=== PATIENT | male | born 1980 | race Two or more races ===

== ENCOUNTER 2024-11-08 16:28 | Inpatient (IN) | payer BC ==
[~2024-11-08] VITALS: Ht 182.9 cm; Wt 126.5 kg
[2024-11-08 01:00] VITALS: BP 125/78; PULSE 107; RESP 20; TEMP 98.3; O2SAT 92
[~2024-11-08 16:28] MED LIST: AZIT1POW PO
--- NOTE | 2024-11-08 17:15 | ED.PDOC ---
Foreign Body HPI Comments HPI: Poor Historian. History obtained from patient and the at bedside. 43-year-old male presents to emergency department for evaluation of foreign body in the rectum. Patient stated that around noon today, he intentionally inserted a many air for additional bottle into his rectum bottom side up for the purpose of sexual arousal. He has done this many times in the past and has been able to retrieve it in the past but today he tried to retrieve it with the handle of a comb but was unable to. Past Medical History: Alcohol abuse Past Surgical History: REVIEW OF SYSTEMS: CONSTITUTIONAL: Denies acute: fever, diaphoresis, chills, generalized weakness. HEAD: Denies acute: headache, photophobia Eyes: Denies acute: Double vision, vision loss, eye pain, eye discharge. EARS: Denies acute: tinnitus, hearing loss, ear discharge, ear pain, THROAT: Denies acute: sore throat, swelling, difficulty swallowing , pain with swallowing, change in voice. NECK: Denies acute: neck pain, neck swelling, stiff neck. HEART: Denies acute : chest pain, palpitations, LUNGS: Denies acute: SOB, wheezing, cough, hemoptysis ABDOMEN: Denies acute: abdominal pain, Nausea, Vomiting, diarrhea, melena , hematemesis, hematochezia SKIN: Denies acute: rash, redness, lesions, itchiness. EXTREMITIES: Denies acute: calf pain, numbness, tingling, weakness, denies pain in extremity. Denies acute: Low back pain. Neuro: Denies acute: focal neurological deficit, motor or sensory focal neurological deficit, tremors, seizure like activity, confusion, dizziness, change in mental status, loss of bowel or bladder function, cauda equina like symptoms. : Denies acute: dysuria, hematuria, flank pain, increase in urinary frequency. PSYCH: Denies acute: hallucination, suicidal ideation, homicidal ideation. PHYSICAL EXAM: General: no acute distress, awake and alert. Head: normocephalic, atraumatic. Neck: supple, trachea is midline, no swelling. Throat: Normal phonation. Eyes:, no erythema, no purulent discharge, no proptosis, no icterus. Heart: regular rate, regular rhythm, no significant murmur appreciated. Lungs: no apparent respiratory distress, Able to speak in full sentences. No wheezing, no rhonchi, no crackles. No stridors Clear to auscultation bilaterally. Abdomen: non tender to palpation, non distended, soft, no guarding, no rebound, + bowel sounds. Neuro: Awake, Alert, oriented to name, self, situation, follows commands GCS=15. Speech is normal. Skin: no petechia, no purpura, no cyanosis, non-pale, not jaundice. Lower extremities: --no - Pitting edema no deformity, no focal swelling, no calf TTP. Makes eye contact. moves all four extremities. Face: no apparent facial droop. Ambulating in the ED independently. ED COURSE: Chief Complaint: Foreign Body Time Seen by MD: 17:15 Primary Care Provider: none History of Present Illness: Nurses Notes, Medications, Allergies Allergies: Coded Allergies: NO KNOWN ALLERGIES (Unverified , 02/03/24) Home Meds Active Scripts Azithromycin (Zithromax) 1 Gm Pow, 1 PACK PO ONCE, #1 PACK Prov:LAURO HEDRICK MD 02/03/24 Information Source: Patient, Spouse Mode of Arrival: Ambulatory Timing: Hours Duration: Since onset, Hours Severity: Moderate Prehospital treatment: None Location: Rectum Context: Purposeful Foreign Body: Other (Air freshener Bottle) Associated signs and symptoms: None Past Medical History PAST MEDICAL HISTORY: High Lipids, Schizophrenia Past Medical History (Other): Bipolar, ADHD Surgical History (Other): Right foot pain Family History Family History: Reviewed,noncontributory to illness, Unknown Social History Smoker: Non-Smoker Alcohol: Occasionally Drugs: Denies Drug Use Lives In: Home Was a procedure done? Was a procedure done?: No FB Differential Dx Differential Diagnosis: Foreign Body, Perforation X-Ray, Labs, Meds, VS Vital Signs Date Time Temp Pulse Resp B/P (MAP) Pulse Ox O2 Delivery O2 Flow Rate FiO2 11/08/24 19:52 115 18 97 Room Air* 0 21 11/08/24 19:51 99.1 115 18 164/114 (131) 98 99.1 11/08/24 16:35 99.8 126 17 139/94 (109) 95 99.8 Lab Test 11/08/24 19:32 11/08/24 17:42 Range/Units Lactic Acid Level Pending 2.7 *H 0.4-2.0 mmol/L White Blood Count 18.3 H 4.4-10.8 10^3/uL Red Blood Count 5.29 4.5-5.90 10^6/uL Hemoglobin 16.4 13.5-17.5 g/dL Hematocrit 49.5 41.0-53.0 % Mean Corpuscular Volume 93.7 80.0-100.0 fL Mean Corpuscular Hemoglobin 31.0 28.0-32.0 pg Mean Corpuscular Hemoglobin Concent 33.1 32.0-36.0 g/dL Red Cell Distribution Width 13.2 11.8-14.3 % Platelet Count 279 140-450 10^3/uL Mean Platelet Volume 8.5 6.9-10.8 fL Neutrophils (%) (Auto) 87.5 H 37.0-80.0 % Lymphocytes (%) (Auto) 6.6 L 10.0-50.0 % Monocytes (%) (Auto) 5.7 0.0-12.0 % Eosinophils (%) (Auto) 0.0 0.0-7.0 % Basophils (%) (Auto) 0.2 0.0-2.0 % Neutrophils # (Auto) 16.0 H 1.6-8.6 10 ^3/uL Lymphocytes # (Auto) 1.2 0.4-5.4 10 ^3/uL Monocytes # (Auto) 1.0 0-1.3 10 ^3/uL Eosinophils # (Auto) 0 0-0.8 10 ^3/uL Basophils # (Auto) 0 0-0.2 10 ^3/uL Nucleated Red Blood Cells 0.1 % Prothrombin Time 10.3 9.3-11.8 sec Prothrombin Time INR 0.97 0.9-1.15 Activated Partial Thromboplast Time 25.8 24.5-34.5 SEC Sodium Level 140 136-145 mmol/L Potassium Level 4.0 3.5-5.1 mmol/L Chloride Level 107 98-107 mmol/L Carbon Dioxide Level 22 20-31 mmol/L Anion Gap 11 5-15 Blood Urea Nitrogen 10 9-23 mg/dL Creatinine 1.30 0.700-1.30 mg/dL Glomerular Filtration Rate Calc 70 >90 mL/min BUN/Creatinine Ratio 7.7 L 10.0-20.0 Serum Glucose 88 74-106 mg/dL Calcium Level 10.4 8.7-10.4 mg/dL Total Bilirubin 0.3 0.2-1.0 mg/dL Aspartate Amino Transferase (AST) 38 13-40 U/L Alanine Aminotransferase (ALT) 37 7-40 U/L Alkaline Phosphatase 106 46-116 U/L Total Protein 8.2 5.7-8.2 g/dL Albumin 5.3 H 3.2-4.8 g/dL Current Medications Medications (Trade) Dose Ordered Sig/Kathryn Route Start Time Stop Time Status Last Admin Piperacillin Sod/ Tazobactam Sod 100 ml @ 100 mls/hr ONCE ONCE IV 11/08/24 19:00 11/08/24 19:59 DC 11/08/24 19:00 Sodium Chloride 1,000 ml @ 1,000 mls/hr Q1H ONCE IV 11/08/24 19:00 11/08/24 19:59 DC 11/08/24 19:00 Sodium Chloride 2,350 ml @ 2,350 mls/hr ONCE ONCE IV 11/08/24 19:45 11/08/24 20:44 11/08/24 19:49 Time of 1ST Reevaluation: 17:45 Reevaluation 1ST: Unchanged Time of 2ND Reevaluation: 18:29 (The case was discussed with the General surgery on-call team (HPI, physical exam, labs and diagnostic tests that were available at the time of disposition, ED course, treatment plan) on the phone. They agreed to follow up with the patient in consult. Requested NPO status. Patient has already been instructed as I evaluated him to stay NPO. Dr. Pa) Patient Education/Counseling: Diagnosis, Treatment Family Education/Counseling: Diagnosis, Treatment Comments Patient presented with the above HPI.---intentional foreign body in rectum insertion---workup was initiated. patient was found with the above mentioned diagnosis. the following medications were ordered: please refer to order lists of meds and tests obtained by myself Dr. Dickinson. Patient ED course and VS have been stabilized. Patient has been reassessed in the ED and remained in a stable condition. Pertinent incidental findings were discussed with the patient and/or family. Patient/family voices understanding and is agreeable with plan. Patient has been observed in the ED adequate length of time to insure improvement/stability. Escalation of care considered: Consideration of escalation to observation or admission General surgery was consulted. Patient was ADMITTED to the medicine team for further evaluation and treatment of their presentation. Sepsis workup was initiated. General surgery came and evaluated the patient at bedside. All the reports of any imaging studies that were ordered by myself were reviewed by myself. Departure 1 Departure Time of Disposition: 18:30 Impression: Primary Impression: Retained foreign body Additional Impression: Leukocytosis Disposition: ADMITTED INPATIENT Admit to: Tele Condition: Guarded Discharged With: Self Critical Care Note Critical Care Time?: Yes (45 min-critical care time only) Heart Score Heart Score: Heart Score Response (Comments) Value History N/A 0 EKG N/A 0 Age N/A 0 Risk Factors N/A 0 Troponin N/A 0 Total 0 I personally scribed for NATALIE DICKINSON DO ([email or web address]) on 11/08/24 at 17:15. Electronically submitted by John Carmen ([email or web address]). NATALIE DICKINSON DO Nov 08, 2024 17:15
[2024-11-08 18:08] LABS: Basophils # (auto) 0 10 ^3/uL (0-0.2); Basophils % (auto) 0.2 % (0.0-2.0); Eosinophils # (auto) 0 10 ^3/uL (0-0.8); Hematocrit 49.5 % (41.0-53.0); Hemoglobin 16.4 g/dL (13.5-17.5); Lymphocytes # (auto) 1.2 10 ^3/uL (0.4-5.4); Lymphocytes % (auto) 6.6 % (10.0-50.0); Mean Corpuscular Hgb Conc. 33.1 g/dL (32.0-36.0); Mean Corpuscular Volume 93.7 fL (80.0-100.0); Monocytes % (auto) 5.7 % (0.0-12.0); Neutrophils % (auto) 87.5 % (37.0-80.0); Nucleated Red Blood Cells % 0.1 %; Platelet Count (auto) 279 10^3/uL (140-450); Red Blood Cells 5.29 10^6/uL (4.5-5.90); Red Cell Distribution Width 13.2 % (11.8-14.3); White Blood Cell 18.3 10^3/uL (4.4-10.8)
[2024-11-08 18:24] LABS: Alanine Aminotransferase 37 U/L (7-40); Alkaline Phosphatase 106 U/L (46-116); Anion Gap 11 (5-15); Aspartate Aminotransferase 38 U/L (13-40); BUN/Creatinine Ratio 7.7 (10.0-20.0); Bilirubin, Total 0.3 mg/dL (0.2-1.0); Blood Urea Nitrogen 10 mg/dL (9-23); Calcium 10.4 mg/dL (8.7-10.4); Carbon Dioxide 22 mmol/L (20-31); Chloride 107 mmol/L (98-107); Glucose 88 mg/dL (74-106); Sodium 140 mmol/L (136-145); Total Protein 8.2 g/dL (5.7-8.2)
[2024-11-08 18:35] LABS: Albumin 5.3 g/dL (3.2-4.8)
--- NOTE | 2024-11-08 18:41 | DVH ---
Procedure: CT CT AB PEL WO CON-NO ORAL OR IV 11/08/2024 05:24 PM Indication: FB in rectum Comparison Study: None Technique: Axial images were obtained and reformatted in coronal and sagittal planes. All CT scans at this medical facility are performed using dose modulation techniques as appropriate to a performed e xam including the following: Automated exposure control was utilized; adjustment of the MA and/or KV according to patient size; and use of iterative reconstruction technique. CT Dose: CTDI volume is 21. 68 mGy. Dose-length product is 1339.63 mGy*cm FINDINGS: Lower Chest: Unremarkable. Hepatobiliary: Unremarkable. Spleen: Unremarkable. Pancreas: Unremarkable. Adrenal Glands: Unremarkable. tract: The kidneys are normal in size bilaterally without hydronephrosis or nephrolithiasis. The u rinary bladder is unremarkable. GI tract: The stomach is grossly normal in appearance. No evidence of small bowel obstruction. The la rge bowel is unremarkable. A bottle shaped foreign body seen in the upper rectum measuring 13.5 cm in length and 3.2 cm in diameter. The appendix is normal. Lymphatics: No mesenteric, retroperitoneal or periportal lymphadenopathy. Vasculature: The abdominal aorta is normal in in caliber. Pelvic Organs: Unremarkable Bones/soft tissues: No acute abnormality. Other: None. IMPRESSION: 1. Bottle-shaped foreign body in the upper rectum measuring 13.5 x 3.2 cm, approximately 10 cm proxim al to the anal verge. No evidence of perforation or proctitis.
[2024-11-08 18:51] LABS: Lactic Acid w/Reflex 2.7 mmol/L (0.4-2.0)
[2024-11-08] MEDS: PIPERACILLIN-TAZOB 3.375GM 100 ML IV ONE (19:00)
[2024-11-08] MEDS: SODIUM CHLORIDE 0.9% 1,000 ML IV ONE (19:00)
[2024-11-08] MEDS ORDERED: LIDOCAINE W/ EPINEPHRINE 1% 20ML VIAL ONE (19:10)
[2024-11-08] MEDS ORDERED: LIDOCAINE W/ EPINEPHRINE 2% INJ 20ML VIAL ONE (19:10)
[2024-11-08] MEDS ORDERED: LIDOCAINE 1% HCL (LOCAL ANESTH.) INJ 20ML MDV ONE (19:10)
[2024-11-08] MEDS ORDERED: MIDAZOLAM HCL 2MG/2ML 2ml VIAL (1mg/ml) ONE (19:17)
[2024-11-08] MEDS ORDERED: fentaNYL CITRATE 100 MCG/2 ML VL ONE (19:17)
[2024-11-08] MEDS ORDERED: ROCURONIUM 10MG/ML 10ML VIAL IV ONE (19:19)
[2024-11-08] MEDS ORDERED: ONDANSETRON HCL 4 MG/2 ML VIAL ONE (19:19)
[2024-11-08] MEDS ORDERED: KETOROLAC TROMETH 30 MG/ML 1ML VIAL ONE (19:19)
[2024-11-08] MEDS ORDERED: GLYCOPYRROLATE 0.2 MG/ML 1ML VIAL ONE (19:19)
[2024-11-08] MEDS ORDERED: DexAMETHasone SOD PHOS 10MG/1ML VIAL INJ ONE (19:19)
[2024-11-08] MEDS ORDERED: LIDOCAINE 2% (LOCAL ANESTH.) PF 5ml SDV ONE (19:19)
[2024-11-08] MEDS ORDERED: PROPOFOL 10 MG/ML 20 ML IV ONE (19:19)
--- NOTE | 2024-11-08 19:19 | DVHINCON2 ---
Date of service: Nov 08, 2024 History of Present Illness 43-year-old male with a history of schizophrenia who inserted a plastic spray bottle into his anus around 11:00 a.m. this morning. He has placed foreign b odies in his rectum before but was able to retrieve them however this time he was unable to remove it therefore used hair brush to try to dig it out but ended up putting it further proximal into his rectum. Now complaining of lower abdominal pain. Past Medical History Schizophrenia Past Surgical History Leg surgery Family History Noncontributory Social History Positive for alcohol. Denies any tobacco or IV drug use Allergies: Coded Allergies: NO KNOWN ALLERGIES (Unverified , 02/03/24) Home Meds Active Scripts Azithromycin (Zithromax) 1 Gm Pow, 1 PACK PO ONCE, #1 PACK Prov:LAURO HEDRICK MD 02/03/24 Vital Signs Vital Signs Date Time Temp Pulse Resp B/P (MAP) Pulse Ox O2 Delivery O2 Flow Rate FiO2 11/08/24 16:35 99.8 126 17 139/94 (109) 95 99.8 Physical Exam GEN: Obese male in no acute distress. Alert. HEENT: Normocephalic atraumatic. Moist mucous membranes. Anicteric sclerae. CV: RRR Respiratory: CTAB ABD: Obese abdomen with minimal suprapubic tenderness to palpation. Rectal: Barely able to touch the tip of the foreign body on my digital rectal exam. CT of the abdomen and pelvis: Bottle shaped foreign body in the upper rectum measuring 13.5 x 3.2 cm approximately 10 cm proximal to the anal verge without evidence of perforation or proctitis. Labs/Diagnostic Data Labs Test 11/08/24 17:42 Range/Units White Blood Count 18.3 H 4.4-10.8 10^3/uL Red Blood Count 5.29 4.5-5.90 10^6/uL Hemoglobin 16.4 13.5-17.5 g/dL Hematocrit 49.5 41.0-53.0 % Mean Corpuscular Volume 93.7 80.0-100.0 fL Mean Corpuscular Hemoglobin 31.0 28.0-32.0 pg Mean Corpuscular Hemoglobin Concent 33.1 32.0-36.0 g/dL Red Cell Distribution Width 13.2 11.8-14.3 % Platelet Count 279 140-450 10^3/uL Mean Platelet Volume 8.5 6.9-10.8 fL Neutrophils (%) (Auto) 87.5 H 37.0-80.0 % Lymphocytes (%) (Auto) 6.6 L 10.0-50.0 % Monocytes (%) (Auto) 5.7 0.0-12.0 % Eosinophils (%) (Auto) 0.0 0.0-7.0 % Basophils (%) (Auto) 0.2 0.0-2.0 % Neutrophils # (Auto) 16.0 H 1.6-8.6 10 ^3/uL Lymphocytes # (Auto) 1.2 0.4-5.4 10 ^3/uL Monocytes # (Auto) 1.0 0-1.3 10 ^3/uL Eosinophils # (Auto) 0 0-0.8 10 ^3/uL Basophils # (Auto) 0 0-0.2 10 ^3/uL Nucleated Red Blood Cells 0.1 % Sodium Level 140 136-145 mmol/L Potassium Level 4.0 3.5-5.1 mmol/L Chloride Level 107 98-107 mmol/L Carbon Dioxide Level 22 20-31 mmol/L Anion Gap 11 5-15 Blood Urea Nitrogen 10 9-23 mg/dL Creatinine 1.30 0.700-1.30 mg/dL Glomerular Filtration Rate Calc 70 >90 mL/min BUN/Creatinine Ratio 7.7 L 10.0-20.0 Serum Glucose 88 74-106 mg/dL Lactic Acid Level 2.7 *H 0.4-2.0 mmol/L Calcium Level 10.4 8.7-10.4 mg/dL Total Bilirubin 0.3 0.2-1.0 mg/dL Aspartate Amino Transferase (AST) 38 13-40 U/L Alanine Aminotransferase (ALT) 37 7-40 U/L Alkaline Phosphatase 106 46-116 U/L Total Protein 8.2 5.7-8.2 g/dL Albumin 5.3 H 3.2-4.8 g/dL Assessment 1. Rectal foreign body Plan/Recommendation 1. Exam under anesthesia with retrieval of rectal foreign body possible expiratory laparotomy with colostomy Informed consent: The surgery and its risks including but not limited to infection, bleeding requiring possible blood transfusion with the risk of hepatitis or HIV infection, possible open surgery with a colostomy, possible perioperative HI or stroke were explained to the patient and his . All questions were answered to their satisfaction. They both expressed verbal understanding and wished to proceed with the surgery. Plan discussed with: Patient, Spouse LIZZ RESTREPO MD Nov 08, 2024 19:19
[2024-11-08 19:35] LABS: INR 0.97 (0.9-1.15); Partial Thromboplastin Time 25.8 SEC (24.5-34.5); Prothrombin Time 10.3 sec (9.3-11.8)
[2024-11-08] MEDS: SODIUM CHLORIDE 0.9% 2,350 ML IV ONE (19:49)
[2024-11-08 19:52] VITALS: PULSE 115; RESP 18; O2SAT 97
[2024-11-08] MEDS ORDERED: SUGAMMADEX 200mg/2ml Vial (100MG/ML) IV ONE (20:09)
[2024-11-08 21:11] VITALS: O2SAT 100
--- NOTE | 2024-11-08 21:21 | DVHOP2 ---
Operative Report - 2 Report Details Date: 11/08/24 Preop Diagnosis: 1. rectal foreign body Postop Diagnosis: 1. same Surgeon: Lizz Pa MD Plastic Surgery Coordinator: none Anesthesiologist: Dr. Mcneill Anesthesia: General Consent: The surgery and its risks including but not limited to infection, bleeding requiring possible blood transfusion with the risk of hepatitis or HIV infection, possible open surgery with colostomy, possible perioperative SD or stroke were explained to the patient and his . All questions were answered to their satisfaction. They expressed verbal understanding and wished to proceed with the surgery. Complications: None Estimated Blood Loss: 5 mL Fluids: 1 L Name of Procedure Performed Removal of foreign body with a rigid proctoscopy Procedure Details Procedure Details: After induction of general anesthesia, patient was placed in a high lithotomy position and his abdomen and anal regions were prepped and draped in standard surgical fashion. A digital rectal exam was 1st performed and I was barely able to touch the tip of this foreign body. By applying gentle pressure in the suprapubic region forcing it towards the caudal direction the foreign body was able to be moved into a better position and with some effort it was removed manually. Rigid proctoscopy was then performed up to 20 cm with no obvious other foreign bodies however there was some mucosal edema involving the rectal wall without obvious perforation. The patient tolerated procedure well and was awakened, extubated and transferred to recovery in stable condition. Specimen: Plastic spray bottle retrieved Condition Stable Disposition Still a Patient LIZZ PA MD Nov 08, 2024 21:21
[2024-11-08] MEDS ORDERED: HYDROmorphone HCL 2 MG/ML VL/or syr IV PRN (21:30)
[2024-11-08 23:03] VITALS: BP 118/79; PULSE 102; RESP 20; TEMP 98.3; O2SAT 95
[2024-11-08] MEDS: SODIUM CHLORIDE 0.9% 500 ML IV ONE (23:10)
[2024-11-09] MEDS ORDERED: CLON0.5T3 PO (00:20)
[2024-11-09] MEDS ORDERED: ARIP2TAB PO (00:20)
[2024-11-09] MEDS ORDERED: DOXE25CA2 PO (00:20)
[2024-11-09] MEDS ORDERED: TOPI100T68 PO (00:20)
[2024-11-09] MEDS ORDERED: OXCA600T3 PO (00:20)
[2024-11-09] MEDS ORDERED: PERP2TAB6 PO (00:20)
[2024-11-09] MEDS: PIPERACILLIN-TAZOB 3.375GM 100 ML IV SCH (01:11)
[2024-11-09 05:00] VITALS: BP 122/70; PULSE 91; RESP 19; TEMP 97.5; O2SAT 98
--- NOTE | 2024-11-09 05:21 | DVHHP2 ---
History of Present Illness Reason for Visit: Foreign body History of Present Illness 43-year-old male seen in recovery unit post foreign body removal. Patient presented after he intentionally inserted a bottle into his rectum for the purpose of sexual arousal. He reports he has done previously and was able to retrieve it but today he was unable to. Patient is alert oriented denies any distress. Past Medical History Schizophrenia Family History Noncontributory Smoke: No ALCOHOL: occassional Drugs: None Lives: with Family Review of Systems Review of Systems Review of systems are currently negative otherwise addressed in HPI. Allergies: Coded Allergies: Trazodone (Verified Allergy, Unknown, HIVES, 11/09/24) Medications Current Medications Medications Dose Ordered Sig/Kathryn Route Start Time Stop Time Status Last Admin Dose Admin Piperacillin Sod/ Tazobactam Sod 100 ml @ 25 mls/hr Q8H IV 11/09/24 02:00 11/09/24 01:11 25 MLS/HR Topiramate 100 mg Q12HR PO 11/09/24 10:00 Oxcarbazepine 300 mg Q12HR PO 11/09/24 10:00 Exam Vital Signs Vital Signs Date Time Temp Pulse Resp B/P (MAP) Pulse Ox O2 Delivery O2 Flow Rate FiO2 11/08/24 23:03 98.3 102 20 118/79 (92) 95 98.3 11/08/24 23:03 Room Air* 0 21 Exam Gen: 43-year-old male in no apparent distress, morbidly obese Skin: Warm, dry, normal color and texture, no rash. HEENT: Normocephalic atraumatic, mucous membranes moist and pink. Neck: Cervical and supraclavicular nodes normal without enlargement, trachea is midline, thyroid gland is normal without masses. Pulmonary: Clear to auscultation and percussion bilaterally. Cardiac: Regular rate and rhythm. No murmur Abdomen: Soft, nontender, nondistended, bowel sounds present all 4 quadrants, no guarding, no rigidity, no organomegaly. Extremities: No cyanosis, clubbing, no edema Neuro: Cranial nerves II through XII grossly intact, normal affect and speech, no focal motor deficits. Labs/Xrays ORDERING PHYSICIAN: NATALIE DICKINSON DO PROCEDURE(s): ABPL - CT AB PEL WO CON-NO ORAL OR IV REASON: FB in rectum ORDER NUMBER(s): [id number], ACCESSION NUMBER(s): [id number] Procedure: CT CT AB PEL WO CON-NO ORAL OR IV 11/08/2024 05:24 PM Indication: FB in rectum Comparison Study: None Technique: Axial images were obtained and reformatted in coronal and sagittal planes. All CT scans at this medical facility are performed using dose modulation techniques as appropriate to a performed exam including the following: Automated exposure control was utilized; adjustment of the MA and/or KV according to patient size; and use of iterative reconstruction technique. CT Dose: CTDI volume is 21.68 mGy. Dose-length product is 1339.63 mGy*cm FINDINGS: Lower Chest: Unremarkable. Hepatobiliary: Unremarkable. Spleen: Unremarkable. Pancreas: Unremarkable. Adrenal Glands: Unremarkable. tract: The kidneys are normal in size bilaterally without hydronephrosis or nephrolithiasis. The urinary bladder is unremarkable. GI tract: The stomach is grossly normal in appearance. No evidence of small bowel obstruction. The large bowel is unremarkable. A bottle shaped foreign body seen in the upper rectum measuring 13.5 cm in length and 3.2 cm in diameter. The appendix is normal. Lymphatics: No mesenteric, retroperitoneal or periportal lymphadenopathy. Vasculature: The abdominal aorta is normal in in caliber. Pelvic Organs: Unremarkable Bones/soft tissues: No acute abnormality. Other: None. IMPRESSION: 1. Bottle-shaped foreign body in the upper rectum measuring 13.5 x 3.2 cm, approximately 10 cm proximal to the anal verge. No evidence of perforation or proctitis. ATED BY: MYRNA MUHAMMAD MD Labs Test 11/08/24 19:32 11/08/24 17:42 Range/Units Lactic Acid Level 2.4 *H 0.4-2.0 mmol/L White Blood Count 18.3 H 4.4-10.8 10^3/uL Red Blood Count 5.29 4.5-5.90 10^6/uL Hemoglobin 16.4 13.5-17.5 g/dL Hematocrit 49.5 41.0-53.0 % Mean Corpuscular Volume 93.7 80.0-100.0 fL Mean Corpuscular Hemoglobin 31.0 28.0-32.0 pg Mean Corpuscular Hemoglobin Concent 33.1 32.0-36.0 g/dL Red Cell Distribution Width 13.2 11.8-14.3 % Platelet Count 279 140-450 10^3/uL Mean Platelet Volume 8.5 6.9-10.8 fL Neutrophils (%) (Auto) 87.5 H 37.0-80.0 % Lymphocytes (%) (Auto) 6.6 L 10.0-50.0 % Monocytes (%) (Auto) 5.7 0.0-12.0 % Eosinophils (%) (Auto) 0.0 0.0-7.0 % Basophils (%) (Auto) 0.2 0.0-2.0 % Neutrophils # (Auto) 16.0 H 1.6-8.6 10 ^3/uL Lymphocytes # (Auto) 1.2 0.4-5.4 10 ^3/uL Monocytes # (Auto) 1.0 0-1.3 10 ^3/uL Eosinophils # (Auto) 0 0-0.8 10 ^3/uL Basophils # (Auto) 0 0-0.2 10 ^3/uL Nucleated Red Blood Cells 0.1 % Prothrombin Time 10.3 9.3-11.8 sec Prothrombin Time INR 0.97 0.9-1.15 Activated Partial Thromboplast Time 25.8 24.5-34.5 SEC Sodium Level 140 136-145 mmol/L Potassium Level 4.0 3.5-5.1 mmol/L Chloride Level 107 98-107 mmol/L Carbon Dioxide Level 22 20-31 mmol/L Anion Gap 11 5-15 Blood Urea Nitrogen 10 9-23 mg/dL Creatinine 1.30 0.700-1.30 mg/dL Glomerular Filtration Rate Calc 70 >90 mL/min BUN/Creatinine Ratio 7.7 L 10.0-20.0 Serum Glucose 88 74-106 mg/dL Calcium Level 10.4 8.7-10.4 mg/dL Total Bilirubin 0.3 0.2-1.0 mg/dL Aspartate Amino Transferase (AST) 38 13-40 U/L Alanine Aminotransferase (ALT) 37 7-40 U/L Alkaline Phosphatase 106 46-116 U/L Total Protein 8.2 5.7-8.2 g/dL Albumin 5.3 H 3.2-4.8 g/dL Assessment/Plan Assessment/Plan Assessment Rectal foreign body Schizophrenia Plan Admit the patient to Med surge to the hospitalist Resume home medications Continue treatment per orders. Plan discussed with: Patient My Orders Orders - RIDDHI RAMIREZ Procedure Category Date Status Time Admit ADMIT 11/08/24 Transmitted 21:54 Topiramate (Topamax) PHA 11/09/24 In Process 10:00 Oxcarbazepine Tablet PHA 11/09/24 In Process (Trileptal Tablet) 10:00 Regular Diet DIET 11/09/24 Transmitted Breakfast Administer EDWARDO 11/09/24 In Process Vaccination - Flu V 00:24 Date of Service: Nov 08, 2024 Billing Provider: RIDDHI RAMIREZ Common Visit Codes: [id number] INP/OBS CARE (MOD) RDIDHI RAMIREZ Nov 09, 2024 05:21
--- NOTE | 2024-11-09 07:32 | DVHPN2 ---
Progress Note - Dictate Date Seen: Nov 09, 2024 Medical Necessity Reason Pt with a Central, PICC or Fol: No Subjective E: no major events o/n. feels better. vital signs Vital Sign Date Time Temp Pulse Resp B/P (MAP) Pulse Ox O2 Delivery O2 Flow Rate FiO2 11/09/24 05:00 97.5 91 19 122/70 (87) 98 97.5 11/08/24 23:03 Room Air* 0 21 Total Intake and Output 11/08/24 11/08/24 11/09/24 15:00 23:00 07:00 Intake Total 560 ml Balance 560 ml medications Current Medications Medications Dose Ordered Sig/Kathryn Route Start Time Stop Time Status Last Admin Dose Admin Piperacillin Sod/ Tazobactam Sod 100 ml @ 25 mls/hr Q8H IV 11/09/24 02:00 11/09/24 01:11 25 MLS/HR Topiramate 100 mg Q12HR PO 11/09/24 10:00 Oxcarbazepine 300 mg Q12HR PO 11/09/24 10:00 objective GEN: NAD ABD: soft. min suprapubic TTP. no G/R. laboratory and microbiology Laboratory Tests 11/08/24 17:42 Test 11/08/24 17:42 Range/Units Serum Glucose 88 74-106 mg/dL Assessment/Plan A: 1. removal of rectal foreign body P: 1. dc home if WBC is coming down. Plan discussed with: Patient LIZZ RESTREPO MD Nov 09, 2024 07:32
[2024-11-09 08:00] VITALS: RESP 20; O2SAT 96
[2024-11-09 08:00] LABS: Basophils # (auto) 0 10 ^3/uL (0-0.2); Basophils % (auto) 0.1 % (0.0-2.0); Eosinophils # (auto) 0 10 ^3/uL (0-0.8); Hematocrit 42.7 % (41.0-53.0); Hemoglobin 14.6 g/dL (13.5-17.5); Lymphocytes # (auto) 1.3 10 ^3/uL (0.4-5.4); Lymphocytes % (auto) 11.4 % (10.0-50.0); Mean Corpuscular Hemoglobin 32.4 pg (28.0-32.0); Mean Corpuscular Hgb Conc. 34.2 g/dL (32.0-36.0); Mean Corpuscular Volume 94.6 fL (80.0-100.0); Monocytes # (auto) 0.5 10 ^3/uL (0-1.3); Monocytes % (auto) 4.3 % (0.0-12.0); Neutrophils # (auto) 9.5 10 ^3/uL (1.6-8.6); Neutrophils % (auto) 84.2 % (37.0-80.0); Platelet Count (auto) 224 10^3/uL (140-450); Red Blood Cells 4.51 10^6/uL (4.5-5.90); Red Cell Distribution Width 13.8 % (11.8-14.3); White Blood Cell 11.3 10^3/uL (4.4-10.8)
[2024-11-09 08:01] LABS: Potassium 4.2 mmol/L (3.5-5.1); Sodium 142 mmol/L (136-145)
[2024-11-09 08:02] LABS: Anion Gap 8 (5-15); Carbon Dioxide 24 mmol/L (20-31)
[2024-11-09 08:03] LABS: Calcium 9.5 mg/dL (8.7-10.4)
[2024-11-09 08:07] LABS: BUN/Creatinine Ratio 8.4 (10.0-20.0); Blood Urea Nitrogen 11 mg/dL (9-23); Chloride 110 mmol/L (98-107); Glucose 135 mg/dL (74-106)
[2024-11-09 09:00] VITALS: BP 132/85; PULSE 97; RESP 20; TEMP 97.6; O2SAT 96
[2024-11-09 09:28] LABS: Lactic Acid w/Reflex 2.5 mmol/L (0.4-2.0)
[2024-11-09] MEDS: TOPIRAMATE 100 MG TAB PO SCH (10:23)
[2024-11-09] MEDS: OXcarbazepine 300 MG TAB PO SCH (10:23)
[2024-11-09] MEDS: SODIUM CHLORIDE 0.9% 1,000 ML IV ONE (10:46)
[2024-11-09 13:00] VITALS: BP_SYST 125; BP_SYST 133; BP_DIAS 58; BP_DIAS 59; PULSE 57; PULSE 88; RESP 18; TEMP 98.1; O2SAT 93; O2SAT 95
[2024-11-09] MEDS ORDERED: AUG875T PO (13:09)
--- NOTE | 2024-11-09 19:17 | DVHDSRES ---
Discharge Summary Date of Admission Resident Creating Document: TITO GIVENS RESIDENT Nov 08, 2024 at 21:54 Date of Discharge: Nov 09, 2024 Admitting Diagnosis Rectal foreign body Schizophrenia Wounds: none Labs/Diagnostic Data: Laboratory Results Test 11/09/24 08:37 11/09/24 07:32 11/08/24 17:42 Lactic Acid Level 2.5 mmol/L (0.4-2.0) White Blood Count 11.3 10^3/uL (4.4-10.8) Red Blood Count 4.51 10^6/uL (4.5-5.90) Hemoglobin 14.6 g/dL (13.5-17.5) Hematocrit 42.7 % (41.0-53.0) Mean Corpuscular Volume 94.6 fL (80.0-100.0) Mean Corpuscular Hemoglobin 32.4 pg (28.0-32.0) Mean Corpuscular Hemoglobin Concent 34.2 g/dL (32.0-36.0) Red Cell Distribution Width 13.8 % (11.8-14.3) Platelet Count 224 10^3/uL (140-450) Mean Platelet Volume 8.3 fL (6.9-10.8) Neutrophils (%) (Auto) 84.2 % (37.0-80.0) Lymphocytes (%) (Auto) 11.4 % (10.0-50.0) Monocytes (%) (Auto) 4.3 % (0.0-12.0) Eosinophils (%) (Auto) 0.0 % (0.0-7.0) Basophils (%) (Auto) 0.1 % (0.0-2.0) Neutrophils # (Auto) 9.5 10 ^3/uL (1.6-8.6) Lymphocytes # (Auto) 1.3 10 ^3/uL (0.4-5.4) Monocytes # (Auto) 0.5 10 ^3/uL (0-1.3) Eosinophils # (Auto) 0 10 ^3/uL (0-0.8) Basophils # (Auto) 0 10 ^3/uL (0-0.2) Nucleated Red Blood Cells 0.0 % Sodium Level 142 mmol/L (136-145) Potassium Level 4.2 mmol/L (3.5-5.1) Chloride Level 110 mmol/L (98-107) Carbon Dioxide Level 24 mmol/L (20-31) Anion Gap 8 (5-15) Blood Urea Nitrogen 11 mg/dL (9-23) Creatinine 1.31 mg/dL (0.700-1.30) Glomerular Filtration Rate Calc 70 mL/min (>90) BUN/Creatinine Ratio 8.4 (10.0-20.0) Serum Glucose 135 mg/dL (74-106) Calcium Level 9.5 mg/dL (8.7-10.4) Prothrombin Time 10.3 sec (9.3-11.8) Prothrombin Time INR 0.97 (0.9-1.15) Activated Partial Thromboplast Time 25.8 SEC (24.5-34.5) Total Bilirubin 0.3 mg/dL (0.2-1.0) Aspartate Amino Transferase (AST) 38 U/L (13-40) Alanine Aminotransferase (ALT) 37 U/L (7-40) Alkaline Phosphatase 106 U/L (46-116) Total Protein 8.2 g/dL (5.7-8.2) Albumin 5.3 g/dL (3.2-4.8) Other Laboratory Tests 11/09/24 07:32 Brief Hx & Hospital Course: HPI 43-year-old male with a history of schizophrenia who inserted a plastic spray bottle into his anus around 11:00 a.m. this morning. He has placed foreign bodies in his rectum before but was able to retrieve them however this time he was unable to remove it therefore used hair brush to try to dig it out but ended up putting it further proximal into his rectum. Now complaining of lower abdominal pain. Past medical history: Schizophrenia Past surgical history: Neck surgery Social history: Reports consuming alcohol but denies smoking or other illegal drug use Home medications: Aripiprazole 2 mg daily, clonazepam 0.5 mg HS, doxepin 25 mg q.p.m., CPN 600 mg t.i.d., perphenazine/amitriptyline 1 tab p.o. t.i.d., topiramate 100 mg b.i.d. Brief hospital course Patient came to the hospital with a chief complaint of rectal pain after foreign body impaction. CT abdomen pelvis without contrast showed bottle shaped foreign body in the upper rectum measuring 13.5 into frequent 2 cm approximately 10 cm proximal to the anal which, no evidence of perforation of proctitis was seen. Surgery were consulted and the patient was taken to the OR where under general anesthesia foreign body was removed and there was no evidence of perforation. Patient was started on full liquid diet. Patient passed stool and gas and reported improvement in in the rectal pain. Patient had elevated WBC count with the elevated lactic acid in the hospital following which he was started on IV Zosyn and given IV fluids. WBC counts decreasing and the patient was given bolus IV fluids. Patient was cleared from discharge from surgery following which he was sent home in stable condition advised to follow up with the PCP in 1 week. Discharge plan Augmentin 875 mg b.i.d. for 5 days Continue on full liquid diet for 3-4 days and then advanced diet as tolerated. Follow up with the PCP Consults/Reason for consult Surgery consultation for impacted foreign body in the rectum Operations or Procedures Operative Report - 2 Report Details Date: 11/08/24 Preop Diagnosis: 1. rectal foreign body Postop Diagnosis: 1. same Surgeon: Garcia Restrepo MD Health Services Manager: none Anesthesiologist: Dr. Mcneill Anesthesia: General Consent: The surgery and its risks including but not limited to infection, bleeding requiring possible blood transfusion with the risk of hepatitis or HIV infection, possible open surgery with colostomy, possible perioperative NM or stroke were explained to the patient and his . All questions were answered to their satisfaction. They expressed verbal understanding and wished to proceed with the surgery. Complications: None Estimated Blood Loss: 5 mL Fluids: 1 L Name of Procedure Performed Removal of foreign body with a rigid proctoscopy Procedure Details Procedure Details: After induction of general anesthesia, patient was placed in a high lithotomy position and his abdomen and anal regions were prepped and draped in standard surgical fashion. A digital rectal exam was 1st performed and I was barely able to touch the tip of this foreign body. By applying gentle pressure in the suprapubic region forcing it towards the caudal direction the foreign body was able to be moved into a better position and with some effort it was removed manually. Rigid proctoscopy was then performed up to 20 cm with no obvious other foreign bodies however there was some mucosal edema involving the rectal wall without obvious perforation. The patient tolerated procedure well and was awakened, extubated and transferred to recovery in stable condition. Specimen: Plastic spray bottle retrieved Condition Stable GARCIA RESTREPO MD Nov 08, 2024 21:21 Condition at Discharge: Good Final Diagnosis/Problems List Rectal pain Rectal Foreign body h/o schizophrenia Discharge Disposition: Home Discharge Instruct/Medications Diet: See Comment Diet comment: continue with full liquid diet for 3-4 days and then transition to regular diet as tolerated Activity: No Restrictions, As Tolerated Follow Up/Referral: Follow up with the PCP in one week Medications: augmentin 875mg bid X 5 days continue on home medications Discharge Statement: "Patient was advised to return to the ER or call 911 if any headaches, dizziness, shortness of breath, chest pain, abdominal pain, bleeding, fevers, or worsening of medical condition. Patient was counseled about treatment plan, medications, possible side effects, patientverbalized understanding. All questions were answered to the best of my ability. This discharge took greater then 30 minutes in planning, reviewing documentation, counseling the patient, and discussing with other team members." ASSESSMENT ASSESSMENT Assessment Rectal pain Rectal Foreign body h/o schizophrenia Date of Service: Nov 09, 2024 Billing Provider: NILA GOMEZ MD Common Visit Codes: 45995-SYE/OBS DISCH DAY >30min TITO GIVENS RESIDENT Nov 09, 2024 19:17 NILA GOMEZ MD Nov 11, 2024 08:37
== END 2024-11-09 13:58 | disposition home or self-care (01) | DRG 394 ==
LOC: ER 16:28 → OVERFLOW 21:54 → CENTRAL 22:45
PROVIDERS: ADMIT Student in an Organized Health Care Education/Training Program; ATTEND Student in an Organized Health Care Education/Training Program
PROC: 0DCP8ZZ Extirpation of Matter from Rectum, Via Natural or Artificial Opening Endoscopic (ICD-10-PCS; principal; 2024-11-08 20:30)
DX: T18.5XXA Foreign body in anus and rectum, initial encounter (principal); E87.20 Acidosis, unspecified; F20.9 Schizophrenia, unspecified; D72.829 Elevated white blood cell count, unspecified; F31.9 Bipolar disorder, unspecified; Z88.8 Allergy status to other drugs, medicaments and biological substances; Z79.899 Other long term (current) drug therapy; Y83.8 Other surgical procedures as the cause of abnormal reaction of the patient, or of later complication, without mention of misadventure at the time of the procedure
CPT/HCPCS: 36415; 74176; 80048; 80053; 83605; 85025; 85610; 85730; 96365; 99291; G0378; J1100; J1885; J2003; J2250; J2405; J2543; J2704